=== PATIENT | male | born 1940 | race Two or more races ===

== ENCOUNTER → 2019-10-09 | Outpatient (CLI) | payer BC, OTHER ==
[~2019-10-09] MED LIST: LINA5TAB PO; MELO7.5T31 PO
[2019-10-09 13:14] LABS: BASOPHILS # (AUTO) 0.03 x10^3/uL (0-0.1); BASOPHILS % (AUTO) 1 % (0-1); EOSINOPHILS # (AUTO) 0.85 x10^3/uL (0-0.4); EOSINOPHILS % (AUTO) 15 % (1-7); LYMPHOCYTES % (AUTO) 36 % (22-44); MD NO; MEAN CORPUSCULAR HEMOGLOBIN 32.8 pg (27.5-34.5); MEAN CORPUSCULAR HGB CONC 32.8 g/dL (33.2-36.2); MEAN PLATELET VOLUME 7.2 fL (7.4-10.4); MONOCYTES % (AUTO) 5 % (2-9); NEUTROPHILS # (AUTO) 2.46 x10^3/uL (1.8-6.8); NEUTROPHILS % (AUTO) 44 % (42-75); PLATELET COUNT 262 x10^3/uL (130-400); RED BLOOD COUNT 3.91 x10^6/uL (4.38-5.82); RED CELL DISTRIBUTION WIDTH 13.8 % (9.4-14.8)
[2019-10-09 13:26] LABS: ALANINE AMINOTRANSFERASE 23 U/L (12-78); ALBUMIN 3.8 g/dL (3.4-5.0); ANION GAP 8 mmol/L (5-15); CHLORIDE 110 mmol/L (98-107); INTERNATIONAL NORMALIZED RATIO 0.94 (0.93-1.1)
[2019-10-09 13:29] LABS: ALKALINE PHOSPHATASE 109 U/L (45-117); BILIRUBIN,TOTAL 0.4 mg/dL (0.2-1.0)
== END | disposition home or self-care (01) ==
LOC: STAR 11:17
PROVIDERS: ATTEND Orthopaedic Surgery
DX: Z01.818 Encounter for other preprocedural examination (principal); Z11.59 Encounter for screening for other viral diseases; M25.561 Pain in right knee
CPT/HCPCS: 36415; 80053; 83036; 85025; 85610; 85730; 87081; 87635; 87806; 93005; G0475

== ENCOUNTER 2019-10-13 09:47 | Observation (INO) | payer BC ==
[~2019-10-13] VITALS: Ht 165.1 cm; Wt 71.0 kg
[2019-10-13] MEDS ORDERED: VANCOMYCIN 1,000 MG ONE (09:51)
[2019-10-13] MEDS ORDERED: ROPIvacaine/PF 0.2%, 20 ML ONE (09:51)
[2019-10-13] MEDS ORDERED: KETOROLAC 60 MG/2 ML ONE (09:51)
[2019-10-13] MEDS ORDERED: SODIUM CHLORIDE 0.9% 50 ML ONE (09:51)
[2019-10-13] MEDS ORDERED: TRANEXAMIC ACID 100 MG/ML, 10ML ONE (09:51)
[2019-10-13] MEDS ORDERED: EPINEPHRINE 1 MG/ML, 1ML ONE (09:51)
[2019-10-13] MEDS ORDERED: LACTATED RINGERS 1,000 ML IV SCH (10:02)
[2019-10-13] MEDS ORDERED: CHLORHEXIDINE 15 ML UDC MM STA (10:04)
[2019-10-13] MEDS ORDERED: GABAPENTIN 300 MG CAPSULE PO ONE (10:30)
[2019-10-13] MEDS ORDERED: ACETAMINOPHEN 500 MG TABLET PO ONE (10:30)
[2019-10-13] MEDS ORDERED: MIDAZOLAM 1 MG/ML, 2ML ONE (11:46)
[2019-10-13] MEDS ORDERED: FENTANYL PF 250 MCG/5ML ONE ×2 (11:47→12:46)
[2019-10-13] MEDS ORDERED: ONDANSETRON 2MG/ML, 2ML ONE (12:46)
[2019-10-13] MEDS ORDERED: PROPOFOL 10 MG/ML, 100ML IV ONE (12:46)
[2019-10-13] MEDS ORDERED: SUCCINYLCHOLINE 20 MG/ML, 10ML ONE (12:46)
[2019-10-13] MEDS ORDERED: ROCURONIUM 10 MG/ML,10ML ONE (12:46)
[2019-10-13] MEDS ORDERED: DEXAMETHASONE 4 MG/ML, 1ML ONE (12:46)
[2019-10-13] MEDS ORDERED: SUGAMMADEX 200 MG/2 ML IVPush ONE (12:46)
[2019-10-13] MEDS ORDERED: CEFAZOLIN PMX 1GM/50ML ONE (12:46)
[2019-10-13] MEDS ORDERED: KETOROLAC 30 MG/1 ML IV PRN (14:00)
[2019-10-13] MEDS ORDERED: ALBUTEROL SULFATE 2.5 MG/3 ML NPPB PRN (14:00)
[2019-10-13] MEDS ORDERED: LABETALOL 5MG/ML, 20ML IV PRN (14:00)
[2019-10-13] MEDS ORDERED: DIAZEPAM 5 MG/ML, 2ML IV PRN ×2 (14:00)
[2019-10-13] MEDS ORDERED: OXYcodone 5 MG/5 ML ORAL.SOL UDC PO PRN (14:00)
[2019-10-13] MEDS ORDERED: HYDROmorphone 1 MG/ML, 1ML INJ IV PRN (14:00)
[2019-10-13] MEDS ORDERED: PROMETHAZINE 25 MG/ML, 1ML IV PRN (14:00)
[2019-10-13] MEDS ORDERED: METOCLOPRAMIDE 5 MG/ML, 2ML IV PRN (14:00)
[2019-10-13] MEDS ORDERED: ONDANSETRON 2MG/ML, 2ML IVPush PRN ×2 (14:00→14:30)
[2019-10-13] MEDS ORDERED: MEPERIDINE/PF 25MG/0.5ML IVPush PRN (14:00)
[2019-10-13] MEDS ORDERED: FENTANYL PF 100 MCG/2ML IV PRN (14:00)
[2019-10-13] MEDS ORDERED: hydrALAzine 20 MG/ML, 1ML IV PRN (14:00)
[2019-10-13] MEDS: ACETAMINOPHEN 325 MG TABLET PO SCH ×2 (14:30→23:45)
[2019-10-13] MEDS ORDERED: ACETAMINOPHEN 650 MG/20.3 ML UDC PO PRN (14:30)
[2019-10-13] MEDS ORDERED: ONDANSETRON 4 MG TABLET PO PRN (14:30)
[2019-10-13] MEDS ORDERED: DIPHENHYDRAMINE 50 MG/ML, 1ML IVPush PRN (14:30)
[2019-10-13] MEDS ORDERED: METOCLOPRAMIDE 5 MG/ML, 2ML IVPush PRN (14:30)
[2019-10-13] MEDS ORDERED: HYDROmorphone 1 MG/ML, 1ML INJ IVPush PRN (14:30)
[2019-10-13] MEDS ORDERED: MAGNESIUM HYDROXIDE 8%, 30ML UDC PO PRN (14:30)
[2019-10-13] MEDS ORDERED: SENNA/DOCUSATE TABLET PO PRN (14:30)
[2019-10-13] MEDS ORDERED: PROMETHAZINE 25 MG/ML, 1ML IM PRN (14:30)
[2019-10-13] MEDS ORDERED: ALUMINUM/MAG/SIMETHICONE 30 ML UDC PO PRN (14:30)
[2019-10-13] MEDS ORDERED: POLYETHYLENE GLYCOL 17 GM PACKET PO PRN (14:30)
[2019-10-13] MEDS ORDERED: OXYcodone IR 5MG TABLET PO PRN (14:30)
[2019-10-13] MEDS ORDERED: TRANEXAMIC ACID 1,000 MG in SODIUM CHLORIDE 0.9% 100 ML IVPB ONE (14:30)
[2019-10-13] MEDS ORDERED: DIPHENHYDRAMINE 25 MG CAPSULE PO PRN (14:30)
[2019-10-13 15:25] VITALS: BP 150/97
[2019-10-13] MEDS: KETOROLAC 30 MG/1 ML IV SCH ×2 (16:00→23:44)
[2019-10-13] MEDS: POTASSIUM CHLORIDE 20 MEQ in D5%-0.45% NACL 1,000 ML IV SCH ×2 (16:36→23:45)
[2019-10-13 19:29] VITALS: BP 144/81
[2019-10-13] MEDS ORDERED: TAMSULOSIN 0.4 MG CAP.ER.24H PO SCH (21:00)
[2019-10-13 23:25] VITALS: BP 100/63
[2019-10-13] MEDS: DOCUSATE 100 MG CAPSULE PO SCH (23:44)
[2019-10-13] MEDS: CEFAZOLIN PMX 1GM/50ML 50 ML IVPB SCH (23:45)
[2019-10-14 02:51] VITALS: BP 93/58
[2019-10-14] MEDS: ACETAMINOPHEN 325 MG TABLET PO SCH ×4 (05:14→13:01)
[2019-10-14] MEDS ORDERED: DEXAMETHASONE 4 MG/ML, 1ML IVPush ONE (06:00)
[2019-10-14] MEDS ORDERED: ASPIRIN 81 MG TABLET EC PO SCH (06:00)
[2019-10-14 08:00] VITALS: BP 93/69
[2019-10-14] MEDS: KETOROLAC 30 MG/1 ML IV SCH (08:34)
[2019-10-14] MEDS: CEFAZOLIN PMX 1GM/50ML 50 ML IVPB SCH (08:34)
[2019-10-14] MEDS: DOCUSATE 100 MG CAPSULE PO SCH (08:34)
[2019-10-14] MEDS ORDERED: ASPI81TA45 PO (08:38)
[2019-10-14] MEDS ORDERED: LINAGLIPTIN 5 MG TAB PO SCH (09:00)
[2019-10-14 12:45] VITALS: BP 98/66
== END 2019-10-14 13:16 | disposition home or self-care (01) ==
LOC: OUT 09:47 → ORIP 14:12 → 4NE 15:24 → DCLOUNGE 10-14 13:10
PROVIDERS: ADMIT Orthopaedic Surgery; ATTEND Orthopaedic Surgery
DX: Z03.818 Encounter for observation for suspected exposure to other biological agents ruled out (principal); M17.11 Unilateral primary osteoarthritis, right knee; Z79.899 Other long term (current) drug therapy
CPT/HCPCS: 27447; 36415; 73560; 82962; 85014; 85018; 87635; 96361; 96365; 96366; 96375; 96376; 97110; 97116; 97161; 97530; C1713; C1776; G0378; J0171; J0330; J0690; J1100; J1885; J2250; J2405; J2704; J2795; J3010; J3480; J7120; J3370